=== PATIENT | male | born 1955 | race Caucasian/White ===

== ENCOUNTER → 2021-04-05 | Day surgery (SDC) | payer MEDICARE, OTHER ==
[~2021-04-05] VITALS: Ht 172.7 cm; Wt 81.6 kg
[~2021-04-05] MED LIST: ATORVASTATIN CA10 MG PO; BASAGLAR K100 UNIT/1 SC; BENADRYL12.5 MG/5 PO; CLOPIDOGREL75 MG PO; LISINOPRIL10 MG PO; LOPRESSOR25 MG PO; METFORMIN HCL500 M3 PO; TRULICITY1.5 MG/0.5 SC
[2021-04-05 08:55] LABS: HCT 34.8 % (42.0-52.0); HGB 11.6 g/dl (13.2-18.0); MCH 30.3 pg (25.0-31.0); MCHC 33.3 g/dL (32.0-36.0); MCV 90.9 fL (78.0-100.0); MPV 8.8 fL (6.0-9.5); RBC 3.83 M/uL (4.70-6.00); RDW 13.3 % (11.5-14.0); WBC 7.3 K/uL (4.0-10.5)
[2021-04-05 09:11] LABS: ALBUMIN 3.1 g/dL (3.4-5.0); BILIRUBIN - TOTAL 0.3 mg/dL (0.2-1.0); BUN/CREAT RATIO (CALC) 24.1 RATIO; CREATININE 0.83 mg/dL (0.67-1.17); GLOBULIN (CALCULATION) 4.4 g/dL; POTASSIUM 4.6 mmol/L (3.5-5.1); TOTAL PROTEIN 7.5 g/dL (6.4-8.2)
== END | disposition home or self-care (01) ==
LOC: FAS 07:46
PROVIDERS: Surgery
DX: K29.51 Unspecified chronic gastritis with bleeding (principal); D50.0 Iron deficiency anemia secondary to blood loss (chronic); B96.81 Helicobacter pylori [H. pylori] as the cause of diseases classified elsewhere; I10 Essential (primary) hypertension; E11.9 Type 2 diabetes mellitus without complications; J44.9 Chronic obstructive pulmonary disease, unspecified; E78.00 Pure hypercholesterolemia, unspecified; I25.10 Atherosclerotic heart disease of native coronary artery without angina pectoris; I25.2 Old myocardial infarction; M19.90 Unspecified osteoarthritis, unspecified site; E78.5 Hyperlipidemia, unspecified; F17.210 Nicotine dependence, cigarettes, uncomplicated; Z95.818 Presence of other cardiac implants and grafts; Z79.01 Long term (current) use of anticoagulants; Z79.4 Long term (current) use of insulin; Z79.899 Other long term (current) drug therapy
CPT/HCPCS: 36415; 80053; 93005; J1610; J2250; J2704; J7120

== ENCOUNTER 2021-04-12 13:46 | Emergency (ER) | payer MEDICARE, OTHER ==
[2021-04-12 14:25] LABS: BASOPHIL 0.7 % (0-2); EOSINOPHIL 2.6 % (0-5); HCT 32.9 % (42.0-52.0); HGB 10.8 g/dl (13.2-18.0); LYMPHOCYTE 21.8 % (15-48); MCH 30.1 pg (25.0-31.0); MCHC 32.8 g/dL (32.0-36.0); MCV 91.6 fL (78.0-100.0); MONOCYTE 8.9 % (0-12); MPV 9.1 fL (6.0-9.5); NEUTROPHIL 65.7 % (41-80); NRBC 0; PLT 279 K/uL (150-400); RBC 3.59 M/uL (4.70-6.00); RDW 13.1 % (11.5-14.0); WBC 8.6 K/uL (4.0-10.5)
[2021-04-12 15:00] LABS: ALBUMIN 3.3 g/dL (3.4-5.0); BILIRUBIN - TOTAL 0.3 mg/dL (0.2-1.0); BUN/CREAT RATIO (CALC) 20.6 RATIO; CREATININE 1.02 mg/dL (0.67-1.17); GLOBULIN (CALCULATION) 4.3 g/dL; POTASSIUM 4.6 mmol/L (3.5-5.1); TOTAL PROTEIN 7.6 g/dL (6.4-8.2)
[2021-04-12] MEDS ORDERED: VENTOLIN HFA IN18 GM INH (17:13)
[2021-04-12] MEDS ORDERED: LASIX20 MG PO (17:13)
[2021-04-12] MEDS ORDERED: MEDROL 4MG DOSEP4 MG PO (17:13)
[2021-04-12] MEDS ORDERED: KLOR-CON 1010 MEQ PO (17:14)
== END 2021-04-12 17:55 | disposition home or self-care (01) ==
LOC: FER 13:46
PROVIDERS: Internal Medicine
DX: J44.1 Chronic obstructive pulmonary disease with (acute) exacerbation (principal); I11.0 Hypertensive heart disease with heart failure; I50.9 Heart failure, unspecified; E11.9 Type 2 diabetes mellitus without complications; I25.2 Old myocardial infarction; Z86.73 Personal history of transient ischemic attack (TIA), and cerebral infarction without residual deficits
CPT/HCPCS: 36415; 71045; 80053; 83880; 84145; 84484; 85025; J1100

== ENCOUNTER 2021-08-01 12:42 | Inpatient (IN) | payer MEDICARE, OTHER ==
[~2021-08-01] VITALS: Ht 175.3 cm; Wt 87.7 kg
[~2021-08-01 12:42] MED LIST changes: +KLOR-CON 1010 MEQ PO; +LASIX20 MG PO; +MEDROL 4MG DOSEP4 MG PO; +VENTOLIN HFA IN18 GM INH
[2021-08-01 13:49] LABS: BASOPHIL 0.7 % (0-2); EOSINOPHIL 3.3 % (0-5); HCT 35.7 % (42.0-52.0); HGB 11.1 g/dl (13.2-18.0); MCH 28.5 pg (25.0-31.0); MCHC 31.1 g/dL (32.0-36.0); MCV 91.5 fL (78.0-100.0); MONOCYTE 10.4 % (0-12); MPV 9.2 fL (6.0-9.5); NEUTROPHIL 59.3 % (41-80); NRBC 0; PLT 267 K/uL (150-400); WBC 6.9 K/uL (4.0-10.5)
[2021-08-01 14:12] LABS: BUN/CREAT RATIO (CALC) 26.1 RATIO; CREATININE 1.19 mg/dL (0.67-1.17)
[2021-08-01 15:21] LABS: CORONAVIRUS 2019 SARS-COV-2 NEGATIVE (NEGATIVE); INFLUENZA A NAA NEGATIVE (NEGATIVE)
[2021-08-01] MEDS ORDERED: LYRICA25 MG PO ×2 (17:46→17:51)
[2021-08-01] MEDS ORDERED: EPCLUSA 400 MG1 EACH PO (17:47)
[2021-08-01] MEDS ORDERED: FEOSOL325 MG PO (17:47)
[2021-08-01] MEDS ORDERED: FLOMAX0.4 MG PO (17:48)
[2021-08-01] MEDS ORDERED: METRONIDAZOLE500 MG PO (17:49)
[2021-08-01] MEDS ORDERED: PRILOSEC20 MG PO (17:49)
[2021-08-01] MEDS ORDERED: UROCIT-K10 MEQ PO ×2 (17:50)
[2021-08-02 06:25] LABS: HCT 33.5 % (42.0-52.0); HGB 10.7 g/dl (13.2-18.0); MCH 28.8 pg (25.0-31.0); MCHC 31.9 g/dL (32.0-36.0); MCV 90.3 fL (78.0-100.0); MPV 9.8 fL (6.0-9.5); RBC 3.71 M/uL (4.70-6.00); RDW 14.9 % (11.5-14.0); WBC 6.1 K/uL (4.0-10.5)
[2021-08-02 06:42] LABS: BUN/CREAT RATIO (CALC) 26.7 RATIO; CREATININE 1.31 mg/dL (0.67-1.17); POTASSIUM 5.1 mmol/L (3.5-5.1)
[2021-08-03 06:50] LABS: BASOPHIL 0.3 % (0-2); EOSINOPHIL 0.2 % (0-5); HCT 33.3 % (42.0-52.0); HGB 10.7 g/dl (13.2-18.0); LYMPHOCYTE 15.9 % (15-48); MCH 28.5 pg (25.0-31.0); MCHC 32.1 g/dL (32.0-36.0); MCV 88.6 fL (78.0-100.0); MONOCYTE 8.4 % (0-12); MPV 9.7 fL (6.0-9.5); NEUTROPHIL 74.9 % (41-80); NRBC 0; PLT 291 K/uL (150-400); RBC 3.76 M/uL (4.70-6.00); RDW 14.4 % (11.5-14.0)
[2021-08-03 07:07] LABS: WBC 13.4 K/uL (4.0-10.5)
[2021-08-03 07:13] LABS: CREATININE 1.41 mg/dL (0.67-1.17); POTASSIUM 4.6 mmol/L (3.5-5.1)
--- NOTE | 2021-08-03 16:02 | NUR ---
08/03/21 Mr. Tanner lives alone. His family lives next door. His family provides [facility], MD's, and grocery. - Mr. Tanner is not eligible for transportation assistance per [employer]. [facility] provides gas vouchers at times. - Mr. Tanner does not use any DME.
[2021-08-04 07:21] LABS: BASOPHIL 0.4 % (0-2); EOSINOPHIL 0.6 % (0-5); HCT 32.7 % (42.0-52.0); HGB 10.6 g/dl (13.2-18.0); LYMPHOCYTE 24.8 % (15-48); MCH 28.7 pg (25.0-31.0); MCHC 32.4 g/dL (32.0-36.0); MCV 88.6 fL (78.0-100.0); MPV 9.4 fL (6.0-9.5); NRBC 0.2; PLT 280 K/uL (150-400); RBC 3.69 M/uL (4.70-6.00); RDW 14.7 % (11.5-14.0); WBC 10.4 K/uL (4.0-10.5)
[2021-08-04 07:47] LABS: BUN/CREAT RATIO (CALC) 34.9 RATIO; CREATININE 1.52 mg/dL (0.67-1.17); POTASSIUM 4.6 mmol/L (3.5-5.1)
== END 2021-08-04 16:45 | disposition left against medical advice (07) | DRG 291 ==
LOC: FER 12:42 → FMS 16:04
PROVIDERS: Family Medicine; Nurse Practitioner Family; ADMIT Internal Medicine
DX: I11.0 Hypertensive heart disease with heart failure (principal); I50.23 Acute on chronic systolic (congestive) heart failure; J44.1 Chronic obstructive pulmonary disease with (acute) exacerbation; Z20.822 Contact with and (suspected) exposure to COVID-19; E78.5 Hyperlipidemia, unspecified; I10 Essential (primary) hypertension; I25.10 Atherosclerotic heart disease of native coronary artery without angina pectoris; E11.9 Type 2 diabetes mellitus without complications; K59.01 Slow transit constipation; F17.200 Nicotine dependence, unspecified, uncomplicated; Z95.5 Presence of coronary angioplasty implant and graft; Z79.02 Long term (current) use of antithrombotics/antiplatelets; Z79.84 Long term (current) use of oral hypoglycemic drugs; Z79.899 Other long term (current) drug therapy
CPT/HCPCS: 36415; 71045; 80048; 82553; 83880; 84484; 85025; 93005; 94640; J1650; J1815; J1940; J2405; J2930; J7512; U0002